=== PATIENT | male | born 1975 | race Caucasian/White ===

== ENCOUNTER 2023-11-23 11:24 | Emergency (ER) | payer BC ==
[2023-11-23] MEDS ORDERED: WELLBUTRIN SR150 M2 PO (12:12)
[2023-11-23] MEDS ORDERED: KLONOPIN 1MG1 MG PO (12:12)
[2023-11-23] MEDS ORDERED: [UNRECOGNIZED DRUG - CODE] PO (12:13)
[2023-11-23] MEDS ORDERED: ATORVASTATIN CA10 MG PO (12:13)
[2023-11-23 12:23] LABS: BASO # 0.03 K/mm3 (0.02-0.10); EOS # 0.51 K/mm3 (0.04-0.40); EOS % 3.6 % (0.0-4.0); HEMATOCRIT 42.3 % (42.0-52.0); HEMOGLOBIN 14.7 g/dL (13.5-18.0); LYMPH# 2.23 K/mm3 (1.50-4.00); MEAN CELL VOLUME 92 fl (78-100); MEAN CORPUSCULAR HEMOGLOBIN 32 pg (27-31); MEAN CORPUSCULAR HGB CONC 35 g/dL (33-37); MEAN PLATELET VOLUME 9.2 fl (7.4-10.4); MONO # 1.04 K/mm3 (0.20-0.80); NEU # 10.51 K/mm3 (1.40-6.50); PLATELET COUNT 264 K/mm3 (130-400); RED BLOOD COUNT 4.58 M/mm3 (4.20-5.60); RED CELL DISTRIBUTION WIDTH 11.6 % (11.5-14.5); WHITE BLOOD COUNT 14.3 K/mm3 (4.8-10.8)
[2023-11-23 12:32] LABS: SODIUM 140 mmol/L (136-145)
[2023-11-23 12:34] LABS: GLUCOSE 102 mg/dL (75-110); TOTAL PROTEIN 7.1 g/dL (6.4-8.3)
[2023-11-23 12:36] LABS: CARBON DIOXIDE 26 mmol/L (22-29); TOTAL BILIRUBIN 0.7 mg/dL (0.2-1.2)
[2023-11-23 12:40] LABS: AST-SGOT 22 U/L (5-34)
[2023-11-23 12:41] LABS: ALT/SGPT 37 U/L (0-55)
[2023-11-23 12:47] LABS: TROPONIN-I < 0.030 ng/mL (<0.030)
[2023-11-23 13:12] LABS: D-DIMER 0.64 mg/L FEU (0.15-0.50)
[2023-11-23 14:00] VITALS: BP 130/85
[2023-11-23] MEDS ORDERED: OMEPRAZOLE40 MG PO (15:07)
== END 2023-11-23 15:19 | disposition home or self-care (01) ==
LOC: ED 11:24
PROVIDERS: Nurse Practitioner
DX: K21.9 Gastro-esophageal reflux disease without esophagitis (principal)
CPT/HCPCS: Q9967